=== PATIENT | male | born 1995 | race Caucasian/White ===

== ENCOUNTER 2017-06-03 22:05 | Emergency (ER) | payer BC, OTHER ==
[~2017-06-03] VITALS: Ht 185.4 cm; Wt 145.1 kg
[2017-06-03 22:10] VITALS: BP 150/106
--- NOTE | 2017-06-03 22:42 | NUR ---
PT LEFT FOR CT VIA WC.
[2017-06-03] MEDS ORDERED: DIAZEPAM 10 MG TABLET PO ONE (23:00)
[2017-06-03] MEDS ORDERED: KETOROLAC TROMETHAMINE INJ 60 MG/2 ML VIAL IM ONE ×2 (23:00→23:07)
[2017-06-03] MEDS ORDERED: DIAZEPAM 10 MG TABLET ONE (23:07)
--- NOTE | 2017-06-03 23:55 | NUR ---
Patient discharged to home in stable condition. Written and verbal after care instructions given. Patient verbalizes understanding of instruction AND RX. PT AMBULATED OUT WITH A STEADY GAIT. VSS
== END 2017-06-03 23:55 | disposition home or self-care (01) ==
LOC: ER 22:12
DX: S16.1XXA Strain of muscle, fascia and tendon at neck level, initial encounter (principal); M54.6 Pain in thoracic spine; F17.200 Nicotine dependence, unspecified, uncomplicated; X58.XXXA Exposure to other specified factors, initial encounter; Y93.89 Activity, other specified; Y92.89 Other specified places as the place of occurrence of the external cause; Y99.8 Other external cause status
CPT/HCPCS: 72040-TC; 72074-TC; A4606; J1885; Z7610

== ENCOUNTER → 2021-06-25 | Emergency (ER) | payer OTHER ==
[~2021-06-25] VITALS: Ht 188 cm; Wt 154.2 kg
[~2021-06-25] MED LIST: IV NS 0.9% 1,000 ML BAG IV ONE; KETOROLAC TROMETHAMINE INJ 30 MG/ML VIAL IV ONE; KETOROLAC TROMETHAMINE INJ 30 MG/ML VIAL ONE; PANTOPRAZOLE 40 MG VIAL IV ONE; PANTOPRAZOLE 40 MG VIAL ONE; PROCHLORPERAZINE EDISYLATE 10 MG/2 ML VIAL IVP ONE; PROCHLORPERAZINE EDISYLATE 10 MG/2 ML VIAL ONE
[2021-06-25 17:23] VITALS: BP 156/88
--- NOTE | 2021-06-25 17:30 | NUR ---
[id number] M HOME C/O NAUSEA AND VOMITING SINCE 11AM S/P EATING AT WORK. DENIES PAIN. IN ROOM AIR AND DENIES SOB. RESPIRATION REGULAR AND UNLABORED. WILL CONTINUE TO MONITOR.
--- NOTE | 2021-06-25 17:55 | NUR ---
DR QUARLES AT THE BEDSIDE
[2021-06-25 19:24] LABS: CALCIUM, SERUM 9.2 mg/dL (8.5-10.1); CREATININE 1.2 mg/dL (0.6-1.3)
[2021-06-25 19:29] LABS: ALBUMIN 4.2 g/dL (3.4-5.0); BILIRUBIN,DIRECT 0.2 mg/dL (0.0-0.2); BILIRUBIN,TOTAL 1.2 mg/dL (0.2-1.0); TOTAL PROTEIN, SERUM 7.9 g/dL (6.4-8.2)
--- NOTE | 2021-06-25 19:31 | NUR ---
REPORT GIVEN TO NURSE DHRUV FOR SYDNEE
--- NOTE | 2021-06-25 19:59 | NUR ---
Patient does not wish to proceed with medical care recommended by Dr. QUARLES. Patient given information related to possible complications, up to and including , which could occur as a result of leaving the hospital at this time. Patient verbalizes understanding of risks involved due to leaving against medical advice. Patient has signed AMA form.
[2021-06-25 20:01] LABS: BASOPHILS % (AUTO) 0.1 % (0.0-2.0); EOSINOPHILS % (AUTO) 0.2 % (0.0-6.0); HEMATOCRIT 51 % (39-51); HEMOGLOBIN 17.3 g/dL (13.5-17.5); LYMPHOCYTES # (AUTO) 0.5 K/uL (0.8-4.8); LYMPHOCYTES % (AUTO) 3.1 % (20.0-44.0); MEAN CORPUSCULAR HGB CONC 34 g/dl (31.0-36.0); MEAN CORPUSCULAR VOLUME 84 fL (80-96); MONOCYTES # (AUTO) 0.6 K/uL (0.1-1.30); MONOCYTES % (AUTO) 3.8 % (2.0-12.0); NEUTROPHILS # (AUTO) 13.5 K/uL (1.8-8.9); NEUTROPHILS % (AUTO) 92.8 % (43.0-81.0); PLATELET COUNT (AUTO) 238 K/uL (150-450); RED BLOOD CELL COUNT(AUTO) 6.07 MIL/uL (4.5-6.0); WHITE BLOOD COUNT (AUTO) 14.6 K/uL (4.3-11.0)
== END | disposition left against medical advice (07) ==
LOC: ER 17:15
DX: R11.2 Nausea with vomiting, unspecified (principal); E66.01 Morbid (severe) obesity due to excess calories; R10.13 Epigastric pain; F45.8 Other somatoform disorders; F17.200 Nicotine dependence, unspecified, uncomplicated; Z68.41 Body mass index [BMI] 40.0-44.9, adult
CPT/HCPCS: 36415; 80048; 80076; 85025; 96361; 96374; 96375; 99284; C9113; J0780; J1885; J7030 ×2

== ENCOUNTER 2024-05-05 19:17 | Emergency (ER) | payer SELFPAY ==
[~2024-05-05] VITALS: Ht 188 cm; Wt 136.1 kg
[2024-05-05 21:49] VITALS: BP 144/82; TEMP 98; O2SAT 99
[2024-05-05] MEDS: IBUPROFEN 400 MG TABLET PO ONE (21:49)
== END 2024-05-05 21:49 | disposition home or self-care (01) ==
LOC: ER 19:19
DX: S93.409A Sprain of unspecified ligament of unspecified ankle, initial encounter (principal); F17.200 Nicotine dependence, unspecified, uncomplicated; X50.1XXA Overexertion from prolonged static or awkward postures, initial encounter; Y93.89 Activity, other specified; Y92.89 Other specified places as the place of occurrence of the external cause; Y99.8 Other external cause status
CPT/HCPCS: 73610-TC